=== PATIENT | female | born 1995 | race Caucasian/White ===

== ENCOUNTER 2018-03-06 08:40 | Emergency (ER) | END 2018-03-06 10:15 | disposition home or self-care (01) ==

== ENCOUNTER 2018-04-02 09:47 | Emergency (ER) | END 2018-04-02 12:07 | disposition home or self-care (01) ==

== ENCOUNTER 2019-02-12 13:48 | Emergency (ER) | payer OTHER ==
[~2019-02-12] VITALS: Ht 172.7 cm; Wt 91.1 kg
[~2019-02-12 13:48] MED LIST: CEPH-443 PO; CIPR500T4 PO; FLUC150T PO; IRON45TA2 PO; NITR-58 PO; PHEN-538 PO; PREN-19 PO
[2019-02-12 14:04] VITALS: Ht 172.7 cm; Wt 91.1 kg
[2019-02-12 16:19] VITALS: BP 118/65; PULSE 72; RESP 18
== END 2019-02-12 16:22 | disposition home or self-care (01) ==
LOC: FTE 13:48
DX: R30.0 Dysuria (principal)
CPT/HCPCS: 99283